=== PATIENT | female | born 1980 | race Caucasian/White ===

== ENCOUNTER 2018-04-08 15:56 | Day surgery (SDC) | payer OTHER ==
[2018-04-08] MEDS ORDERED: Fluorouracil 100 MG, Enoxaparin Sodium 25 MG, EPINEPHrine 0.3 MG in Ophthalmic Irrigati... FS SCH (16:04)
[2018-04-08] MEDS ORDERED: Phenylephrine 2.5% Ophth Soln 5 ML BOT FS SCH (16:15)
[2018-04-08] MEDS ORDERED: Cyclopentolate 1% Opth Drop 2 ML BOT FS SCH (16:15)
[2018-04-08] MEDS ORDERED: Fentanyl 100 MCG/2 ML VIAL ONE (16:28)
[2018-04-08] MEDS ORDERED: Maxitrol 0.1% Opth Oint 3.5 GM TUBE ONE (16:35)
[2018-04-08] MEDS ORDERED: CEFAZOLIN 1 GM VIAL ONE (16:35)
[2018-04-08] MEDS ORDERED: Lidocaine 1% PF 5 ML VIAL ONE ×2 (16:35)
[2018-04-08] MEDS ORDERED: ePHEDrine/0.9% NaCl/PF SYRINGE 50 mg/10 ml ONE (16:35)
[2018-04-08] MEDS ORDERED: Lidocaine 4% PF 5 ML AMP ONE (16:35)
[2018-04-08] MEDS ORDERED: Bupivacaine 0.75% 10 ML AMP ONE (16:35)
[2018-04-08] MEDS ORDERED: Atropine Sulfate 1% Ophth Ointment 3.5 gm Tube ONE (16:35)
[2018-04-08] MEDS ORDERED: Triamcinolone 40 MG/ML VIAL ONE (16:35)
[2018-04-08] MEDS ORDERED: PROPOFOL 200 MG/20 ML VIAL ONE (16:35)
[2018-04-08] MEDS ORDERED: Cyclopentolate 1% Opth Drop 2 ML BOT ONE (17:04)
[2018-04-08] MEDS ORDERED: Phenylephrine 2.5% Ophth Soln 5 ML BOT ONE (17:04)
[2018-04-08] MEDS ORDERED: Meperidine HCl/PF 25 MG/ML VIAL ONE (18:43)
[2018-04-08] MEDS ORDERED: HYDROcodone/Acetaminophen 5/325 mg Tablet ONE (19:21)
--- NOTE | 2018-04-09 01:24 | OP ---
DATE OF PROCEDURE: 04/08/2018 PREOPERATIVE DIAGNOSIS: Retinal detachment, right eye. POSTOPERATIVE DIAGNOSIS: Retinal detachment, right eye. PROCEDURE: Pars plana vitrectomy and retinal detachment repair, right eye. ANESTHESIA: General endotracheal anesthesia. DESCRIPTION OF PROCEDURE: The patient was identified in the preoperative holding area. Appropriate informed consent for planned surgical procedure on the right eye was obtained. The patient was transferred to OR suite. Appropriate cardiopulmonary monitoring was established. General endotracheal anesthesia was initiated. A retrobulbar block was placed. The patient was prepped and draped in usual sterile manner for ophthalmic surgery on the right eye. Lid speculum was placed in the right eye, 25-gauge trocar was placed through the conjunctiva and sclera superotemporally, inferotemporally, and supranasally. Infusion line was placed inferotemporally. Light pipe vitreous cutter inserted into the eye. Core vitrectomy was performed removing vitreous hemorrhage. Superior retinal detachment was identified and the tears were marked with endocautery and a posterior drained retinotomy was created. 360 laser was placed using Endolaser delivery device excepting the superior detached retina. Complete air-fluid exchange was performed with 10 minutes being allowed for fluid to drain posteriorly. The laser was completed superiorly, 28% sulfur hexafluoride gas was infused into the eye. Trocars were removed. Superior temporal and superior nasal sclerotomies were suture closed. Retrobulbar Kenalog and subconjunctival Ancef were placed. Atropine antibiotic ointment was placed, and the eye was patched and shielded. The patient was taken to the postoperative recovery unit in good condition, having suffered no immediate perioperative complications. The patient has been advised to position the head up and to follow up with Dr. Grajeda. Job ID: [id number]
== END 2018-04-08 21:00 | disposition home or self-care (01) ==
LOC: SDC 15:56
PROVIDERS: ATTEND Ophthalmology Retina Specialist
PROC: 08QE3ZZ Repair Right Retina, Percutaneous Approach (ICD-10-PCS; principal; 2018-04-08)
PROC: 08T43ZZ Resection of Right Vitreous, Percutaneous Approach (ICD-10-PCS; principal; 2018-04-08)
DX: H33.021 Retinal detachment with multiple breaks, right eye (principal)
CPT/HCPCS: 67025; J0171; J0690; J1650; J2001; J2175; J2704; J3010; J3301; J3490; J9190